=== PATIENT | female | born 1975 | race Caucasian/White ===

== ENCOUNTER 2020-03-07 20:48 | Emergency (ER) | payer BC ==
[~2020-03-07] VITALS: Ht 172.7 cm; Wt 68.5 kg
--- NOTE | 2020-03-07 21:05 | NUR ---
ED Nurse Note: pt ambulated to ED from home c/o lower abdominal pain, radiating across abdomen, pt had a IUD removed on wednesday after being in place for only a few weeks. Pt denies vaginal bleeding but 7/10 pain. VSS
--- NOTE | 2020-03-07 21:17 | NUR ---
ED Nurse Note: Pt states she is having heacy bleeding at this time, denies N/V or fever at home.
[2020-03-07 21:30] VITALS: BP 125/84
[2020-03-07 21:34] LABS: APPEARANCE,URINE SLIGHTLY CLOUDY; BILIRUBIN, URINE NEGATIVE (NEGATIVE); COLOR,URINE PALE YELLOW; GLUCOSE, URINE (UA) NEGATIVE (NEGATIVE); KETONES,URINE NEGATIVE (NEGATIVE); LEUKOCYTE ESTERASE ,URINE NEGATIVE (NEGATIVE); NITRITE,URINE NEGATIVE (NEGATIVE); PH,URINE 6 (4.5-8.0); PROTEIN,URINE 1+ (NEGATIVE); UROBILINOGEN,URINE NORMAL MG/DL (0.0-1.0)
[2020-03-07 21:35] LABS: BASOPHILS % (AUTO) 1.3 % (0.0-2.0); EOSINOPHILS % (AUTO) 0.9 % (0.0-3.0); HEMATOCRIT 42.2 % (37.0-47.0); HEMOGLOBIN 13.5 G/DL (12.0-16.0); LYMPHOCYTES % (AUTO) 32.1 % (20.0-45.0); MEAN CORPUSCULAR VOLUME 96 FL (80-99); MONOCYTES % (AUTO) 5.1 % (1.0-10.0); NEUTROPHILS % (AUTO) 60.6 % (45.0-75.0); PLATELET COUNT 163 K/UL (150-450); RED BLOOD COUNT 4.41 M/UL (4.20-5.40); RED CELL DISTRIBUTION WIDTH 11.8 % (11.6-14.8); WHITE BLOOD COUNT 9.7 K/UL (4.8-10.8)
[2020-03-07 21:41] LABS: ANION GAP 11 mmol/L (5-15); BLOOD UREA NITROGEN 11 mg/dL (7-18); CALCIUM 9.3 MG/DL (8.5-10.1); CARBON DIOXIDE 29 MMOL/L (21-32); CHLORIDE 101 MMOL/L (98-107); CREATININE 1.1 MG/DL (0.55-1.30); POTASSIUM 3.6 MMOL/L (3.5-5.1); SODIUM 141 MMOL/L (136-145)
[2020-03-07 21:46] LABS: ALANINE AMINOTRANSFERASE 49 U/L (12-78); ALBUMIN 4.2 G/DL (3.4-5.0); ALBUMIN/GLOBULIN RATIO 1.3 (1.0-2.7); ALKALINE PHOSPHATASE 50 U/L (46-116); ASPARTATE AMINO TRANSFERASE 42 U/L (15-37); BILIRUBIN,TOTAL 0.6 MG/DL (0.2-1.0)
[2020-03-07] MEDS ORDERED: Omnipaque-300 100ml vial INJ PRN (22:00)
--- NOTE | 2020-03-07 22:04 | Emergency Room Report ---
History of Present Illness General Chief Complaint: Abdominal Pain Source: Patient Present Illness HPI Patient is a 44-year-old female who presents after increased right lower abdominal pain. Previous history of ovarian cyst. Reports having recent ultrasound which showed a approximately 5 cm cyst which subsequently resolved on subsequent ultrasounds. Patient denies any fever or vomiting. Reports having lower abdominal cramping.Patient previous history of back pain. Had MRI in the past of her lumbar spine. Patient had recent IUD removal. She was noted to have some continued uterine bleeding and had recently started on oral contraceptives. Allergies: Coded Allergies: PENICILLINS (Verified Allergy, Unknown, 03/07/20) COVID-19 Screening Contact w/high risk pt: No Recent Travel to affected area: No Experienced COVID-19 symptoms?: No COVID-19 Testing performed DROP FORGER HELPER: No Patient History Past Medical History: see triage record Last Menstrual Period: 01/26/20 Now: No : 6 Para: 3 Reviewed Nursing Documentation: PMH: Agreed; PSxH: Agreed Nursing Documentation-PMH Hx Neurological Problems: Yes - spinal leak Review of Systems All Other Systems: negative except mentioned in HPI Physical Exam Vital Signs Date Time Temp Pulse Resp B/P (MAP) Pulse Ox O2 Delivery O2 Flow Rate FiO2 03/07/20 20:54 98.4 79 16 125/84 (98) 97 Room Air Sp02 EP Interpretation: reviewed, normal General Appearance: normal inspection, no apparent distress, alert, GCS 15, non -toxic, Chronically Ill Head: atraumatic ENT: normal ENT inspection, hearing grossly normal, normal voice Neck: normal inspection, full range of motion, supple, no bony tend Respiratory: normal inspection, lungs clear, normal breath sounds, no respiratory distress, no retraction, no wheezing Cardiovascular #1: regular rate, rhythm, no edema Gastrointestinal: normal inspection, normal bowel sounds, non tender, soft, no guarding, no hernia Genitourinary: no CVA tenderness Musculoskeletal: normal inspection, back normal, normal range of motion Neurologic: alert, motor strength/tone normal, supervisor slitting and shipping III-XII nml as tested, oriented x3, responsive, speech normal, normal inspection Psychiatric: normal inspection, judgement/insight normal, mood/affect normal Medical Decision Making Diagnostic Impression: Primary Impression: Lesion of liver Additional Impressions: Ovarian cyst Nonspecific abdominal pain ER Course Patient presented for abdominal pain. Differential diagnoses included ischemic bowel, appendicitis, perforated viscus, abdominal aortic aneurysm, inferior myocardial infarction, viral gastroenteritis among others.Because patient's complexity imaging studies, and laboratory testing ordered. Laboratory testing showed normal hemoglobin and normal white blood count.. Electrolytes were unremarkable Lipase was normal White blood count was normal CT of the abdomen pelvis showed: Multiple hepatic lesions consistent with hemangiomas large amount of fecal material, 3 x 3 ovarian cyst and 2 x 2 ovarian cyst small amount of fluid in the cul-de-sac Patient appears to be stable for close outpatient follow up. Patient was advised of imaging and laboratory findings. She was advised that she would need further work-up due to symptoms. Patient was advised to follow-up with her [facility] as well as her primary care physician for further evaluation and treatment.Patient is given prescription for medication for stool softener as well as medications for pain. Patient was advised to return if worse. Patient was also advised to follow-up with Dr. Lee for recheck. Labs Test 03/07/20 21:25 White Blood Count 9.7 K/UL (4.8-10.8) Red Blood Count 4.41 M/UL (4.20-5.40) Hemoglobin 13.5 G/DL (12.0-16.0) Hematocrit 42.2 % (37.0-47.0) Mean Corpuscular Volume 96 FL (80-99) Mean Corpuscular Hemoglobin 30.6 PG (27.0-31.0) Mean Corpuscular Hemoglobin Concent 32.0 G/DL (32.0-36.0) Red Cell Distribution Width 11.8 % (11.6-14.8) Platelet Count 163 K/UL (150-450) Mean Platelet Volume 11.0 FL (6.5-10.1) Neutrophils (%) (Auto) 60.6 % (45.0-75.0) Lymphocytes (%) (Auto) 32.1 % (20.0-45.0) Monocytes (%) (Auto) 5.1 % (1.0-10.0) Eosinophils (%) (Auto) 0.9 % (0.0-3.0) Basophils (%) (Auto) 1.3 % (0.0-2.0) Urine Color Pale yellow Urine Appearance Slightly cloudy Urine pH 6 (4.5-8.0) Urine Specific [place] 1.010 (1.005-1.035) Urine Protein 1+ (NEGATIVE) Urine Glucose (UA) Negative (NEGATIVE) Urine Ketones Negative (NEGATIVE) Urine Blood 5+ (NEGATIVE) Urine Nitrite Negative (NEGATIVE) Urine Bilirubin Negative (NEGATIVE) Urine Urobilinogen Normal MG/DL (0.0-1.0) Urine Leukocyte Esterase Negative (NEGATIVE) Urine RBC Tntc /HPF (0 - 2) Urine WBC 0-2 /HPF (0 - 2) Urine Squamous Epithelial Cells Few /LPF (NONE/OCC) Urine Bacteria Few /HPF (NONE) Urine HCG, Qualitative Negative (NEGATIVE) Sodium Level 141 MMOL/L (136-145) Potassium Level 3.6 MMOL/L (3.5-5.1) Chloride Level 101 MMOL/L (98-107) Carbon Dioxide Level 29 MMOL/L (21-32) Anion Gap 11 mmol/L (5-15) Blood Urea Nitrogen 11 mg/dL (7-18) Creatinine 1.1 MG/DL (0.55-1.30) Estimat Glomerular Filtration Rate 53.9 mL/min (>60) Glucose Level 88 MG/DL (74-106) Calcium Level 9.3 MG/DL (8.5-10.1) Magnesium Level 2.1 MG/DL (1.8-2.4) Total Bilirubin 0.6 MG/DL (0.2-1.0) Aspartate Amino Transf (AST/SGOT) 42 U/L (15-37) Alanine Aminotransferase (ALT/SGPT) 49 U/L (12-78) Alkaline Phosphatase 50 U/L (46-116) Total Protein 7.4 G/DL (6.4-8.2) Albumin 4.2 G/DL (3.4-5.0) Globulin 3.2 g/dL Albumin/Globulin Ratio 1.3 (1.0-2.7) Lipase 274 U/L (73-393) Last Vital Signs Date Time Temp Pulse Resp B/P (MAP) Pulse Ox O2 Delivery O2 Flow Rate FiO2 03/07/20 21:30 98.4 79 16 125/84 97 Room Air Status: improved Disposition: HOME, SELF-CARE Condition: Stable Scripts Dicyclomine Hcl* (DICYCLOMINE HCL*) 10 Mg Capsule 10 MG ORAL QID, #20 CAP Prov: Elvis Cordoba MD 03/07/20 Docusate Sodium* (COLACE*) 100 Mg Capsule 100 MG ORAL TWICE A DAY, #20 CAP Prov: Elvis Cordoba MD 03/07/20 Referrals: Rinku Lee MD (PCP) Elvis Cordoba MD March 07, 2020 22:04
[2020-03-07] MEDS ORDERED: Ketorolac 30mg Inj IV ONE (22:15)
[2020-03-07] MEDS ORDERED: Ketorolac 30mg Inj ONE (22:15)
--- NOTE | 2020-03-07 22:18 | NUR ---
ED Nurse Note: Pt to CT
--- NOTE | 2020-03-07 22:27 | NUR ---
ED Nurse Note: Pt back from CT
--- NOTE | 2020-03-07 22:43 | Diagnostic Imaging Report ---
ADDENDUM - Added by Katerine Lake MD on 03/08/2020 1:10 AM (-07:00) A typing error is identified in the impression. Please disregard the following:' Pelvic ultrasound unremarkable'. The corrected wording is:' Pelvic structures unremarkable'. EXAM: CT Abdomen and Pelvis With Intravenous Contrast CLINICAL HISTORY: ABD PAIN TECHNIQUE: Axial computed tomography images of the abdomen and pelvis with intravenous contrast. CTDI is 5.5 mGy and DLP is 276.7 mGy-cm. One or more of the following dose reduction techniques were used: automated exposure control, adjustment of the mA and/or kV according to patient size, use of iterative reconstruction technique. COMPARISON: None. FINDINGS: Lung bases: Unremarkable. No mass. No consolidation. ABDOMEN: Liver: Low-attenuation lesion within the liver with peripheral nodular enhancement located at the subcapsular region, junction of the right and left liver lobe and measuring 3.8 x 2.5 cm most compatible with hemangioma. Low-attenuation second lesion within the left liver lobe just below the dome of the diaphragm with peripheral nodular enhancement consistent with second hemangioma and measures 1.5 x 1.4 cm. Thyroid lesion within the right liver lobe posteriorly measuring 0.9 x 0.9 cm with no enhancement, otherwise suboptimal characterized. This may be associated with cyst or hemangioma in the absence of known neoplasm. Remainder of the liver is normal. Gallbladder and bile ducts: Contracted gallbladder otherwise unremarkable biliary system. No calcified stones. No ductal dilation. Pancreas: Unremarkable. No mass. No ductal dilation. Spleen: Unremarkable. No splenomegaly. Adrenals: Unremarkable. No mass. Kidneys and ureters: Unremarkable. No solid mass. No hydronephrosis. Stomach and bowel: Abundant fecal debris within the colon suggestive of constipation. No obstruction. No mucosal thickening. PELVIS: Appendix: Normal appendix. Bladder: Unremarkable. No mass. Reproductive: Retroflexed uterus. ABDOMEN and PELVIS: Intraperitoneal space: 2 right-sided adnexal cyst measuring 3.2 x 3.3 cm and 2.2 x 2.0 cm. Mild free fluid in the cul-de-sac. Remainder of the pelvic structures unremarkable. No free air. Bones/joints: No acute fracture. No dislocation. Soft tissues: Unremarkable. Vasculature: Unremarkable. No abdominal aortic aneurysm. Lymph nodes: Unremarkable. No enlarged lymph nodes. IMPRESSION: 1. Constipation. No signs of bowel obstruction. No acute appendicitis. 2. Right-sided adnexal/ovarian cyst as described above. Mild free fluid in the cul-de-sac, remainder of the pelvic ultrasound unremarkable. 3. Likely hemangiomas and/or liver cysts within the liver as described above. If indicated, follow-up with right upper quadrant ultrasound recommended for further correlation.
--- NOTE | 2020-03-07 22:47 | NUR ---
US tech at bedside.
[2020-03-07] MEDS ORDERED: COLACE100 MG ORAL (23:26)
[2020-03-07] MEDS ORDERED: DICYCLOMINE HCL10 MG ORAL (23:26)
[2020-03-08 00:05] VITALS: BP 125/84
--- NOTE | 2020-03-08 00:05 | NUR ---
ER DISCHARGE NOTE: Patient is cleared to be discharged per ERMD, pt is aox4, on room air, with stable vital signs. pt was given dc and prescription instructions, pt was able to verbalize understanding, pt id band and iv site removed without complications. pt is able to ambulate with steady gait. pt took all belongings.
--- NOTE | 2020-03-08 00:45 | Diagnostic Imaging Report ---
EXAM: US Abdomen Complete CLINICAL HISTORY: PAIN TECHNIQUE: Real-time ultrasound of the abdomen (complete) with image documentation. COMPARISON: None. FINDINGS: Limitations: Exam is limited to gas artifact in the bulb. Liver: There is normal echogenicity through the liver. There are several hyperechoic lesions identified within the liver in the corresponding distribution of previously CT described hemangioma and concordant with ultrasound characteristics of hemangioma, largest being seen within the right liver lobe and measuring 1.6 x 2.1 x 2.1 cm. No intrahepatic bile duct dilation. Gallbladder: Gallbladder is normal with no stones or sludge. Normal gallbladder wall measuring 2.8 mm. Common bile duct: Slightly prominent common bile duct up to 7.7 mm. No stones. Pancreas: There is obscuration of the head of the pancreas. Remainder of the pancreas is normal. Kidneys: Right kidney measures 12.0 x 3.9 x 5.4 cm. Left kidney measured 10.5 x 5.2 x 4.7 cm. No stones. No hydronephrosis. Spleen: The spleen measures 9.9 cm Aorta: Proximal aorta measures 2.26 cm per No aneurysm. Inferior vena cava: Unremarkable. Free fluid: No free fluid. IMPRESSION: 1. Multiple liver lesions compatible with hemangioma and corresponding to lesion seen on previous CT examination. 2. No gallstones or signs of acute cholecystitis. 3. Remainder of the abdominal ultrasound unremarkable.
--- NOTE | 2020-03-08 01:09 | Diagnostic Imaging Report ---
EXAM: US Pelvis Complete, Transabdominal CLINICAL HISTORY: ABD PAIN TECHNIQUE: Real-time transabdominal pelvic ultrasound (complete) with image documentation. COMPARISON: CT dated 03/07/2020. FINDINGS: Uterus/cervix: The uterus is retroverted measuring 8.6 x 7.9 x 5.0 cm. Endometrium measures 7.6 mm and is hyperechoic. No myometrial mass. Right ovary: Right ovary measures 5.8 x 3.6 x 2.9 cm. Within the right ovary there are multiple cystic structures, largest measuring 2.7 x 3.3 x 2.0 cm and 1.8 x 1.7 cm. Normal blood flow. Left ovary: Left ovary measures 2.4 x 2.2 x 2.0 cm. Within the left ovary there are small follicular cysts. Normal blood flow. Free fluid: There is mild free fluid in the cul-de-sac. Bladder: Unremarkable as visualized. Wall is normal thickness for degree of distention. IMPRESSION: 1. Retroverted uterus otherwise uterus unremarkable. 2. Right-sided ovarian cyst, largest measuring 3.3 x 2.7 x 2.0 cm and 2. 2 x 2.4 x 2.0 cm. 3. Mild free fluid in the cul-de-sac, remainder of the exam unremarkable.
== END 2020-03-08 00:05 | disposition home or self-care (01) ==
LOC: EMR 21:34
DX: K76.9 Liver disease, unspecified (principal); N83.201 Unspecified ovarian cyst, right side; K59.00 Constipation, unspecified
CPT/HCPCS: 36415; 74177; 76700; 76830; 76856; 80053; 81003; 81025; 83690; 83735; 85025; 96361; 96374; 99284; J1885; J7030; Q9967